=== PATIENT | male | born 1995 | race Caucasian/White ===

== ENCOUNTER 2019-11-09 06:57 | Emergency (ER) | payer OTHER ==
[~2019-11-09] VITALS: Ht 182.9 cm; Wt 127.0 kg
[2019-11-09 07:07] VITALS: Ht 182.9 cm; Wt 127.0 kg
[2019-11-09 09:51] VITALS: BP 131/68
== END 2019-11-09 09:51 | disposition home or self-care (01) ==
LOC: ED 06:57
DX: S93.492A Sprain of other ligament of left ankle, initial encounter (principal); X50.1XXA Overexertion from prolonged static or awkward postures, initial encounter; Y93.67 Activity, basketball; Y92.89 Other specified places as the place of occurrence of the external cause; Y99.8 Other external cause status
CPT/HCPCS: Q0092

== ENCOUNTER 2019-12-17 18:22 | Emergency (ER) | payer OTHER, SELFPAY ==
[~2019-12-17] VITALS: Ht 182.9 cm; Wt 124.7 kg
[2019-12-17 18:31] VITALS: Ht 182.9 cm; Wt 124.7 kg
[2019-12-17 19:40] LABS: CALCIUM 8.1 mg/dL (8.5-10.1); CHLORIDE SERUM 98 mmol/L (98-107); GFR1 > 60 mL/min; GLUCOSE SERUM 158 mg/dL (74-106); POTASSIUM SERUM 3.4 mmol/L (3.5-5.1); SODIUM SERUM 136 mmol/L (136-145)
[2019-12-17 19:45] LABS: ALBUMIN 4.2 g/dL (3.4-5.0); ALKALINE PHOSPHATASE 84 U/L (46-116); ALT/SGPT 241 U/L (16-63); AST/SGOT 262 U/L (15-37); BILIRUBIN TOTAL 1.2 mg/dL (0.20-1.00); TOTAL PROTEIN, SERUM 7.9 g/dL (6.4-8.2)
[2019-12-17 19:46] LABS: BASOPHIL % 1.1 % (0-2); PLATELET COUNT 280 x10^3mcL (130-400); RED CELL DISTRIBUTION WIDTH 13.5 % (11.5-14.5)
[2019-12-17 22:03] VITALS: BP 156/77
== END 2019-12-17 22:03 | disposition home or self-care (01) ==
LOC: ED 18:22
PROVIDERS: Emergency Medicine
DX: R07.89 Other chest pain (principal); R10.12 Left upper quadrant pain
CPT/HCPCS: 87804; J7030; Q0092; U0003-CS

== ENCOUNTER 2019-12-19 22:31 | Emergency (ER) | payer OTHER ==
[~2019-12-19] VITALS: Ht 182.9 cm; Wt 126.1 kg
[2019-12-19 22:47] VITALS: BP 180/111; Ht 182.9 cm; Wt 126.1 kg
== END 2019-12-20 01:37 | disposition home or self-care (01) ==
LOC: ED 22:31
DX: F07.81 Postconcussional syndrome (principal)